=== PATIENT | male | born 1980 | race Caucasian/White ===

== ENCOUNTER 2017-06-08 23:13 | Emergency (ER) | payer MEDICAID ==
[2017-06-09] MEDS ORDERED: ASPIRIN 81 MG TABLET, CHEWABLE PO ONE (00:06)
--- NOTE | 2017-06-09 00:08 | ER Document Report ---
ED Medical Screen (RME) - General Chief Complaint: Chest Pain Stated Complaint: CHEST TIGHTNESS/PAIN/HEART RACING Time Seen by Provider: 06/09/17 00:05 Notes: 36-year-old male, chief complaint of chest pain that started about 1 hour ago. Pain across the front of his chest, sharp and lasted about 10 minutes. Denies nausea or vomiting, shortness of breath, or radiation. Denies cocaine or any illegal drug use except marijuana. He smokes, denies any daily medications, past medical history of bipolar. TRAVEL OUTSIDE OF THE [place] IN LAST 30 DAYS: No Past Medical History Psychiatric Medical History: Reports: Hx Bipolar Disorder, Hx Schizophrenia Physical Exam - Respiratory Respiratory status: No respiratory distress Breath sounds: Normal. No: Decreased air movement, Wheezing - Cardiovascular Rhythm: Regular. No: Tachycardia Heart sounds: Normal auscultation, S1 appreciated, S2 appreciated - Abdominal Inspection: Normal Tenderness: Nontender. No: Tender, Guarding
[2017-06-09 00:11] VITALS: BP 127/91
[2017-06-09 00:25] LABS: ABSOLUTE BASOPHILS # (AUTO) 0.1 10^3/uL (0.0-0.2); ABSOLUTE MONOCYTES (AUTO) 0.7 10^3/uL (0.1-1.4); ABSOLUTE NEUT (AUTO) 4.9 10^3/uL (1.7-8.2); BASOPHILS % (AUTO) 1.3 % (0-2); EOSINOPHILS % (AUTO) 0.3 % (0-6); HEMATOCRIT 43.6 % (37.9-51.0); HEMOGLOBIN 14.9 g/dL (13.5-17.0); HGB HCT DIFFERENCE 1.1; LYMPHOCYTES % (AUTO) 40.8 % (13-45); MEAN CORPUSCULAR HEMOGLOBIN 30.4 pg (27.0-33.4); MEAN CORPUSCULAR HGB CONC 34.1 g/dL (32.0-36.0); MEAN CORPUSCULAR VOLUME 89 fl (80-97); MONOCYTES % (AUTO) 7.3 % (3-13); RED BLOOD COUNT 4.91 10^6/uL (4.35-5.55); RED CELL DISTRIBUTION WIDTH 14.2 % (11.5-14.0); SEGMENTED NEUTROPHILS % (AUTO) 50.3 % (42-78); WHITE BLOOD COUNT 9.8 10^3/uL (4.0-10.5)
[2017-06-09 00:42] LABS: ALBUMIN 4.5 g/dL (3.5-5.0); ALKALINE PHOSPHATASE 69 U/L (38-126); ANION GAP 13 (5-19); ASPARTATE AMINO TRANSFERASE 18 U/L (17-59); BILIRUBIN,DIRECT 0.3 mg/dL (0.0-0.4); BILIRUBIN,TOTAL 0.5 mg/dL (0.2-1.3); BLOOD UREA NITROGEN 11 mg/dL (7-20); CALCIUM 9.8 mg/dL (8.4-10.2); CARBON DIOXIDE 24 mmol/L (22-30); CHLORIDE 103 mmol/L (98-107); CREATININE RESULT 0.92 mg/dL (0.52-1.25); GLUCOSE 101 mg/dL (75-110); SODIUM 140.4 mmol/L (137-145); TOTAL PROTEIN 7.9 g/dL (6.3-8.2)
[2017-06-09 00:54] LABS: CREATINE KINASE MB 0.56 ng/mL (<4.55)
[2017-06-09 00:55] LABS: TROPONIN I < 0.012 ng/mL
[2017-06-09 00:56] LABS: ALANINE AMINOTRANSFERASE 21 U/L (21-72); CREATINE KINASE 73 U/L (55-170); POTASSIUM 3.7 mmol/L (3.6-5.0)
--- NOTE | 2017-06-09 01:42 | RADIOLOGY REPORT (SQ) ---
EXAM DESCRIPTION: CHEST SINGLE VIEW COMPLETED DATE/TIME: 06/09/2017 1:15 am REASON FOR STUDY: chest pain COMPARISON: None. EXAM PARAMETERS: NUMBER OF VIEWS: One view. TECHNIQUE: Single frontal radiographic view of the chest acquired. RADIATION DOSE: NA LIMITATIONS: None. FINDINGS: LUNGS AND PLEURA: No consolidation, pneumothorax or pleural effusion. MEDIASTINUM AND HILAR STRUCTURES: No masses. Contour normal. HEART AND VASCULAR STRUCTURES: Heart normal in size. No overt vascular congestion. BONES: No acute findings. HARDWARE: None in the chest. IMPRESSION: No acute radiographic finding in the chest. TECHNICAL DOCUMENTATION: JOB ID: [id number]
--- NOTE | 2017-06-09 02:07 | ER Document Report ---
ED General - General Chief Complaint: Chest Pain Stated Complaint: CHEST TIGHTNESS/PAIN/HEART RACING Time Seen by Provider: 06/09/17 00:05 Notes: Patient is a 36-year-old male with past medical history of bipolar disorder and anxiety who presents complaining of intermittent chest pain that has been present for the past 2-3 weeks. Describes these as episodes of sharp, stabbing , diffuse chest wall pain that lasts for approximately 10 minutes and then does spontaneously resolved. Nothing seems to trigger these episodes. He denies a history of similar symptoms in the past. States he feels these may be related to his anxiety. He denies any history of DVT or pulmonary embolus. No cardiac history. He denies any symptoms at time of my assessment. He has not seen his primary care doctor regarding today's concerns. TRAVEL OUTSIDE OF THE [place] IN LAST 30 DAYS: No - Related Data Allergies/Adverse Reactions: No Known Allergies Allergy (Verified 06/09/17 00:19) Past Medical History - General Information source: Patient - Social History Smoking Status: Current Every Day Smoker Chew tobacco use (# tins/day): No Drug Abuse: Marijuana Lives with: Family Family History: Reviewed & Not Pertinent Psychiatric Medical History: Reports: Hx Bipolar Disorder, Hx Schizophrenia Review of Systems - Review of Systems Notes: Constitutional: Negative for fever. HENT: Negative for sore throat. Eyes: Negative for visual changes. Cardiovascular: Positive for chest pain. Respiratory: Negative for shortness of breath. Gastrointestinal: Negative for abdominal pain, vomiting or diarrhea. Genitourinary: Negative for dysuria. Musculoskeletal: Negative for back pain. Skin: Negative for rash. Neurological: Negative for headaches, weakness or numbness. 10 point ROS negative except as marked above and in HPI. Physical Exam - Vital signs Vitals: Temp Pulse Resp BP Pulse Ox 97.5 F 88 16 127/91 H 99 06/09/17 00:04 06/09/17 00:04 06/09/17 00:04 06/09/17 00:04 06/09/17 00:04 Interpretation: Normal Notes: PHYSICAL EXAMINATION: GENERAL: Well-appearing, well-nourished and in no acute distress. HEAD: Atraumatic, normocephalic. EYES: Pupils equal round and reactive to light, extraocular movements intact, sclera anicteric, conjunctiva are normal. ENT: nares patent, oropharynx clear without exudates. Moist mucous membranes. NECK: Normal range of motion, supple without lymphadenopathy LUNGS: Breath sounds clear to auscultation bilaterally and equal. No wheezes rales or rhonchi. HEART: Regular rate and rhythm without murmurs ABDOMEN: Soft, nontender, normoactive bowel sounds. No guarding, no rebound. No masses appreciated. EXTREMITIES: Normal range of motion, no pitting or edema. No cyanosis. NEUROLOGICAL: No focal neurological deficits. Moves all extremities spontaneously and on command. PSYCH: Normal mood, normal affect. SKIN: Warm, Dry, normal turgor, no rashes or lesions noted. Course - Re-evaluation Re-evalutation: 06/09/17 02:03 Presentation of chest pain in an otherwise well appearing patient. Low clinical suspicion for ACS given clinical history, exam, EKG without ST elevations or depressions, and negative initial troponin. HEART score less than or equal to 3. PE also seems unlikely given clinical history, absence of tachycardia or dyspnea. Patient is PERC criteria negative. EKG does have an S1,2 pattern without a full S1-3 pattern although this can be a concern for possible pulmonary embolus patient's history is otherwise completely consistent with this diagnosis. No right bundle branch block. I have no old for comparison. He has no risk factors for this, he denies any chest pain, pleuritic pain or dyspnea at the time of my assessment. CXR without evidence of pneumothorax or pneumonia. No widened mediastinum. Aortic dissection also seems unlikely given history, symmetric pulses, CXR, and vitals. Patient has had intermittent chest pain over the last 2 weeks and I do not believe serial troponins are indicated given that he had an episode of chest pain greater than 8 hours prior to arrival and has not had recurrence since that time. I discussed with the patient that the exact etiology of his pain is unclear and that he does need to follow-up with his primary care doctor and sql ssis developer. At this time will discharge with return precautions and follow-up recommendations. Verbal discharge instructions given a the bedside and opportunity for questions given. Medication warnings reviewed. Patient is in agreement with this plan and has verbalized understanding of return precautions and the need for primary care follow-up in the next 24-72 hours. HEART Score: History:0 EC Age:0 Risk Factors:1 Troponin:0 Total: 1 - Vital Signs Vital signs: Temp Pulse Resp BP Pulse Ox 97.5 F 88 16 127/91 H 99 06/09/17 00:04 06/09/17 00:04 06/09/17 00:04 06/09/17 00:04 06/09/17 00:04 - Laboratory Result Diagrams: 06/09/17 00:15 06/09/17 00:15 Laboratory results interpreted by me: 06/09/17 00:15 RDW 14.2 H - Diagnostic Test Radiology reviewed: Image reviewed, Reports reviewed Radiology results interpreted by me: 06/09/17 02:06 Chest x-ray: No acute infiltrate or pneumothorax - EKG Interpretation by Me Additional EKG results interpreted by me: 06/09/17 02:06 Sinus rhythm. Rate 93. S1 to pattern. QTC is 428. Discharge - Discharge Clinical Impression: Palpitations Chest pain Qualifiers: Chest pain type: unspecified Qualified Code(s): R07.9 - Chest pain, unspecified Condition: Good Disposition: HOME, SELF-CARE Additional Instructions: You were seen today for chest pain. The exact cause of your pain is unclear. However, based on your cardiac enzyme testing, chest x-ray, and EKG it does not appear that it is from an immediately life-threatening cause at this time. Please follow-up with the sql ssis developer listed for consideration of a Holter monitor given your palpitations. Please return to emergency department immediately if you have worsening of your chest pain, shortness of breath, vomiting, become unable to exert yourself due to pain or difficulty breathing, you pass out, or have any pain that radiates into your arms, jaw, or back. Please also return if you have any additional symptoms that are concerning to you. Referrals: MOHAN MCKEON MD [ACTIVE STAFF] - Follow up as needed
--- NOTE | 2017-06-09 21:24 | EKG REPORT ---
SEVERITY:- BORDERLINE ECG - SINUS RHYTHM PROBABLE LEFT ATRIAL ABNORMALITY S1,S2,S3 PATTERN CONSIDER RIGHT VENTRICULAR HYPERTROPHY ST ELEV, PROBABLE NORMAL EARLY REPOL PATTERN : Confirmed by: Aleksandr Michel MD 09-Jun-2017 21:24:42
== END 2017-06-09 02:14 | disposition home or self-care (01) ==
LOC: ER 23:13
DX: R00.2 Palpitations (principal); R07.9 Chest pain, unspecified; F31.9 Bipolar disorder, unspecified; F41.9 Anxiety disorder, unspecified; F17.200 Nicotine dependence, unspecified, uncomplicated
CPT/HCPCS: 36415; 71010; 80053; 82550; 82553; 84484; 85025; 93005; 93010; 99285